=== PATIENT | female | born 1990 | race Native Hawaiian/Other Pacific Islander ===

== ENCOUNTER 2017-04-26 16:34 | Emergency (ER) | payer OTHER ==
[2017-04-26 17:01] VITALS: RESP 18; TEMP 98.3; O2SAT 100
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
[2017-04-26 20:25] VITALS: BP 139/87; PULSE 80
--- NOTE | 2017-04-29 11:13 | CARD ---
APPROVED REPORT EKG Measurement Heart [id number] <Conclusion> Normal sinus rhythm Minimal voltage criteria for LVH, may be normal variant Borderline ECG
== END 2017-04-26 19:30 | disposition left against medical advice (07) ==
LOC: H.ER 16:34
DX: R55 Syncope and collapse (principal); T14.8 Other injury of unspecified body region; V29.9XXA Motorcycle rider (driver) (passenger) injured in unspecified traffic accident, initial encounter; Y92.410 Unspecified street and highway as the place of occurrence of the external cause